=== PATIENT | male | born 1975 | race African-American/Black ===

== ENCOUNTER 2017-05-03 20:55 | Emergency (ER) | payer OTHER ==
[~2017-05-03] VITALS: Ht 190.5 cm; Wt 158.8 kg
== END 2017-05-03 21:45 | disposition home or self-care (01) ==
LOC: CFTX 20:55 → CED 20:55 → CFTX 21:39
DX: B35.3 Tinea pedis (principal); L03.116 Cellulitis of left lower limb; F17.210 Nicotine dependence, cigarettes, uncomplicated
CPT/HCPCS: 99282